=== PATIENT | male | born 1980 | race Caucasian/White ===

== ENCOUNTER 2017-07-05 20:55 | Emergency (ER) | payer OTHER ==
[~2017-07-05] VITALS: Ht 180.3 cm; Wt 85.0 kg
[2017-07-05 20:57] VITALS: BP 157/73; PULSE 93; RESP 16; TEMP 98.3; O2SAT 97
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
[2017-07-05] MEDS ORDERED: IBUPROFEN 600 MG TAB PO ONE (22:15)
[2017-07-05] MEDS ORDERED: ACETAMINOPHEN/HYDROcodone 325 MG/5 MG TAB PO ONE (22:15)
--- NOTE | 2017-07-05 22:16 | RADRPT ---
EXAM DATE/TIME: 07/05/2017 21:44 [facility] COMPARISON: WRIST LEFT COMPLETE ([id number]), July 05, 2017, 21:49. INDICATIONS : Trauma to hand due to fall. MEDICAL HISTORY : None. SURGICAL HISTORY : None. ENCOUNTER: Initial ACUITY: 1 day PAIN SCORE: 0/10 LOCATION: Left upper extremity hand FINDINGS: 3 views of the right hand demonstrate a transverse mildly comminuted fracture of the distal radial me taphysis with slight dorsal angulation of the distal fragment. There is a minimally displaced ulnar s tyloid fracture. Carpal bones appear intact. The remaining left hand structures demonstrate no acute finding. CONCLUSION: There are fractures of the distal radius and ulna, as above. Remaining hand structures demonstrate no acute finding. Arslan Wagenr MD on July 05, 2017 at 22:14 Board Certified Radiologist. This report was verified electronically.
[2017-07-05] MEDS ORDERED: HYDR-3516 PO (22:18)
== END 2017-07-05 22:35 | disposition home or self-care (01) ==
LOC: NEPD 20:55
DX: S52.592A Other fractures of lower end of left radius, initial encounter for closed fracture (principal); S52.612A Displaced fracture of left ulna styloid process, initial encounter for closed fracture; V18.4XXA Pedal cycle driver injured in noncollision transport accident in traffic accident, initial encounter
CPT/HCPCS: 29125; 73110; 73130